=== PATIENT | female | born 1975 | race Caucasian/White ===

== ENCOUNTER 2018-10-14 05:26 | Day surgery (SDC) | payer OTHER ==
[2018-10-12 12:04] LABS: HEMATOCRIT 38.4 % (36.0-47.0); HEMOGLOBIN 12.9 g/dL (12.0-15.5); MEAN CORPUSCULAR HEMOGLOBIN 26.2 pg (27.0-33.4); MEAN CORPUSCULAR HGB CONC 33.5 g/dL (32.0-36.0); MEAN CORPUSCULAR VOLUME 78 fl (80-97); PLATELET COUNT 275 10^3/uL (150-450); RED BLOOD COUNT 4.91 10^6/uL (3.72-5.28); RED CELL DISTRIBUTION WIDTH 14.6 % (11.5-14.0); WHITE BLOOD COUNT 4.7 10^3/uL (4.0-10.5)
[2018-10-12 12:11] LABS: APPEARANCE,URINE SLIGHTLY-CLOUDY; BILIRUBIN,URINE NEGATIVE (NEGATIVE); COLOR,URINE YELLOW; GLUCOSE, URINE NEGATIVE (NEGATIVE); KETONES,URINE 20 mg/dL (NEGATIVE); LEUKOCYTE ESTERASE,URINE NEGATIVE (NEGATIVE); NITRITE,URINE NEGATIVE (NEGATIVE); PROTEIN,URINE NEGATIVE (NEGATIVE); URINE SPECIFIC GRAVITY 1.006; UROBILINOGEN,URINE NEGATIVE mg/dL (<2.0)
[2018-10-12 12:25] LABS: ANION GAP 14 (5-19); BLOOD UREA NITROGEN 12 mg/dL (7-20); CALCIUM 9.3 mg/dL (8.4-10.2); CARBON DIOXIDE 27 mmol/L (22-30); CHLORIDE 102 mmol/L (98-107); GLUCOSE 85 mg/dL (75-110); POTASSIUM 4.5 mmol/L (3.6-5.0)
[~2018-10-14 05:26] MED LIST: CEFAZOLIN 1 GM/D5W RTU 1 GM/50 ML RTUPB IV ONE; CEFAZOLIN 1 GM/D5W RTU 1 GM/50 ML RTUPB IV PRN; LACTATED RINGERS 1000 ML IV PRN; LIDOCAINE 0.5% INJ-PF (5 MG/ML) 50 ML SDV SUBCUT PRN
[2018-10-14] MEDS ORDERED: PROPOFOL INJ 200 MG/20 ML VIAL IV ONE (06:59)
[2018-10-14] MEDS ORDERED: MIDAZOLAM 2 MG/2 ML INJ ONE (06:59)
[2018-10-14] MEDS ORDERED: ONDANSETRON HCL INJ/PF 4 MG/2 ML SDV ONE (06:59)
[2018-10-14] MEDS ORDERED: FENTANYL CITRATE INJ/PF 100 MCG/2 ML AMPUL ONE (06:59)
[2018-10-14] MEDS ORDERED: LIDOCAINE 1% INJ-PF (10 MG/ML) 30 ML SDV ONE (07:08)
[2018-10-14] MEDS ORDERED: DIPHENHYDRAMINE HCL 50 MG/ML VIAL IV PRN (07:36)
[2018-10-14] MEDS ORDERED: MEPERIDINE HCL/PF INJ 25 MG/1 ML DISP.SYRIN IV PRN (07:36)
[2018-10-14] MEDS ORDERED: FENTANYL CITRATE INJ/PF 100 MCG/2 ML AMPUL IV PRN ×3 (07:36)
[2018-10-14] MEDS ORDERED: PROMETHAZINE HCL INJ 25 MG/1 ML VIAL IV PRN (07:36)
[2018-10-14] MEDS ORDERED: MORPHINE SULFATE 10 MG/ML INJ IV PRN (07:36)
[2018-10-14] MEDS ORDERED: OXYCODONE-ACETAMINOPHEN 5-325 MG TABLET PO PRN (08:03)
[2018-10-14] MEDS ORDERED: MORPHINE SULFATE 10 MG/ML INJ INJ PRN (08:03)
[2018-10-14] MEDS ORDERED: PROMETHAZINE HCL INJ 25 MG/1 ML VIAL IM PRN (08:05)
[2018-10-14] MEDS ORDERED: IBUPROFEN 800 MG TABLET ONE (08:34)
--- NOTE | 2018-10-14 08:55 | OPERATIVE REPORT E ---
Operative Report NAME: SRAVANI CARRILLO : 1975 AGE: 43Y DATE OF SURGERY: 10/14/2018 ROOM: PREOPERATIVE DIAGNOSIS: Menorrhagia. POSTOPERATIVE DIAGNOSIS: Menorrhagia. PROCEDURE: Hysteroscopy, Novasure ablation. SURGEON: JAUQI GOVEA M.D. COMPLICATIONS: None. ANESTHESIA: LMAC, paracervical block. FINDINGS: A normal-appearing uterus, specifically no bicornuate nature was noted to the uterus. No polyps or fibroids were appreciated. INDICATIONS FOR PROCEDURE: The patient had profuse profound menorrhagia unresponsive to the usual outpatient management. She had erythema nodosum reaction to Provera. The usual risks of bleeding, infection, anesthesia, and damage to organs and tissues was discussed and the patient understood. DESCRIPTION OF PROCEDURE: The patient was taken to the operating room and placed in modified lithotomy position. After adequate anesthesia ascertained, bladder was left undrained. EUA performed. Surgical timeout performed and antibiotics had been given. Uterine measurements were taken after cervix was dilated to admit the operative hysteroscope. Noted to be approximately 5.5 cm length, 4.7 cm width was noted. A uterine burn for approximately a minute and 10 seconds was performed. At completion of procedure, a rehysteroscopy demonstrated good uterine integrity was noted and good burn noted throughout. The patient was awakened and taken to recovery room in stable condition. DICTATING PHYSICIAN: JAQUI GOVEA M.D. [id number] PHY#: [id number] ID: [id number] JOB#: [id number] ACCT: [id number] cc:JAQUI GOVEA M.D. >
[2018-10-14] MEDS ORDERED: IBUPROFEN 800 MG TABLET PO SCH (10:00)
[2018-10-14 10:05] VITALS: BP 135/85
== END 2018-10-14 09:35 | disposition home or self-care (01) ==
LOC: OROUT 05:26
PROVIDERS: ATTEND Specialist
DX: N92.0 Excessive and frequent menstruation with regular cycle (principal); E03.9 Hypothyroidism, unspecified; K21.9 Gastro-esophageal reflux disease without esophagitis; Z79.899 Other long term (current) drug therapy
CPT/HCPCS: 86900; 86901; 36415; 86850; 85027; 81025; 80048; 81001; 58563; J2250; J0690; J3010; J3490; J2405; J2704; 952

== ENCOUNTER → 2019-04-21 | Outpatient (CLI) | payer OTHER ==
--- NOTE | 2019-04-21 22:31 | EKG REPORT ---
SEVERITY:- NORMAL ECG - SINUS RHYTHM : Confirmed by: Radhames Mccartney 21-Apr-2019 22:30:15
== END ==
LOC: OD 11:17
PROVIDERS: ATTEND Nurse Practitioner Family
DX: I10 Essential (primary) hypertension (principal)
CPT/HCPCS: 93005; 93010

== ENCOUNTER → 2019-06-02 | Outpatient (CLI) | payer OTHER ==
--- NOTE | 2019-06-02 13:54 | RADIOLOGY REPORT (SQ) ---
EXAM DESCRIPTION: ANKLE LEFT COMPLETE COMPLETED DATE/TIME: 06/02/2019 1:28 pm REASON FOR STUDY: FOOT PAIN, LFT ANKLE PAIN M79.671 PAIN IN RIGHT FOOT COMPARISON: None. NUMBER OF VIEWS: Three views. TECHNIQUE: AP, lateral, and oblique radiographic images acquired of the left ankle. LIMITATIONS: None. FINDINGS: MINERALIZATION: Normal. BONES: No acute fracture or dislocation. No worrisome bone lesions. JOINTS: No effusions. SOFT TISSUES: No soft tissue swelling. No foreign body. OTHER: No other significant finding. IMPRESSION: NEGATIVE STUDY OF THE LEFT ANKLE. NO RADIOGRAPHIC EVIDENCE OF ACUTE INJURY. TECHNICAL DOCUMENTATION: JOB ID: [id number] [employer]- All Rights Reserved Reading location - IP/workstation name: [email or web address]
--- NOTE | 2019-06-02 13:55 | RADIOLOGY REPORT (SQ) ---
EXAM DESCRIPTION: FOOT BILATERAL 3 VIEWS COMPLETED DATE/TIME: 06/02/2019 1:28 pm REASON FOR STUDY: FOOT PAIN, LFT ANKLE PAIN COMPARISON: None. NUMBER OF VIEWS: Three views right foot. Three views left foot TECHNIQUE: AP, lateral, and oblique radiographic images acquired of the left foot. LIMITATIONS: None. FINDINGS: MINERALIZATION: Normal. BONES: No acute fracture or dislocation. No worrisome bone lesions. Normal alignment. No significant arthritic changes. JOINTS AND SOFT TISSUES: No swelling. No calcifications. No foreign bodies. OTHER: No other significant finding. IMPRESSION: NEGATIVE STUDY OF THE RIGHT AND LEFT FOOT. NO ACUTE POST-TRAUMATIC FINDINGS. NO EXPLANATION FOR PAIN. TECHNICAL DOCUMENTATION: JOB ID: [id number] [employer]- All Rights Reserved Reading location - IP/workstation name: [email or web address]
== END ==
LOC: OD 13:02
PROVIDERS: ATTEND Nurse Practitioner Family
DX: M79.671 Pain in right foot (principal); M25.572 Pain in left ankle and joints of left foot

== ENCOUNTER → 2019-08-01 | Outpatient (CLI) | payer OTHER ==
--- NOTE | 2019-08-01 09:48 | RADIOLOGY REPORT (SQ) ---
EXAM DESCRIPTION: LUMBAR SPINE COMPLETE COMPLETED DATE/TIME: 08/01/2019 9:14 am REASON FOR STUDY: LUMBAR PAIN M54.5 LOW BACK PAIN COMPARISON: None. NUMBER OF VIEWS: Five views including obliques. TECHNIQUE: AP, lateral, oblique, and sacral radiographic images acquired of the lumbar spine. LIMITATIONS: None. FINDINGS: MINERALIZATION: Normal. SEGMENTATION: 5 [id number] lumbar vertebral bodies. Hypoplastic T12 ribs. ALIGNMENT: Mild straightening of the normal lumbar lordosis. VERTEBRAE: Maintained height. No fracture or worrisome bone lesion. DISCS: Preserved height. No significant osteophytes or end plate irregularity. Minimal disc height loss at L4-5 and L5-S1. POSTERIOR ELEMENTS: Pedicles and facets are intact. No pars defect or posterior arch defects. HARDWARE: None in the spine. PARASPINAL SOFT TISSUES: Normal. PELVIS: Intact as visualized. No fractures or worrisome bone lesions. SI joints intact. OTHER: No other significant finding. IMPRESSION: No acute bony abnormality of the lumbar spine. Minimal disc height loss at L4-5 and L5-S1. TECHNICAL DOCUMENTATION: JOB ID: [id number] [employer]- All Rights Reserved Reading location - IP/workstation name: [email or web address]
== END ==
LOC: OD 09:00
PROVIDERS: ATTEND Nurse Practitioner Family
DX: M54.5 Low back pain (principal)
CPT/HCPCS: 72110

== ENCOUNTER 2019-11-09 05:31 | Day surgery (SDC) | payer OTHER ==
[2019-11-08 09:52] LABS: APPEARANCE,URINE SLIGHTLY-CLOUDY; BILIRUBIN,URINE NEGATIVE (NEGATIVE); COLOR,URINE YELLOW; GLUCOSE, URINE NEGATIVE (NEGATIVE); KETONES,URINE NEGATIVE (NEGATIVE); LEUKOCYTE ESTERASE,URINE NEGATIVE (NEGATIVE); NITRITE,URINE NEGATIVE (NEGATIVE); PROTEIN,URINE NEGATIVE (NEGATIVE); URINE SPECIFIC GRAVITY 1.015; UROBILINOGEN,URINE NEGATIVE mg/dL (<2.0)
[2019-11-08 10:43] LABS: HEMATOCRIT 39.3 % (36.0-47.0); HEMOGLOBIN 13.1 g/dL (12.0-15.5); MEAN CORPUSCULAR HEMOGLOBIN 25.9 pg (27.0-33.4); MEAN CORPUSCULAR HGB CONC 33.4 g/dL (32.0-36.0); MEAN CORPUSCULAR VOLUME 78 fl (80-97); PLATELET COUNT 258 10^3/uL (150-450); RED BLOOD COUNT 5.06 10^6/uL (3.72-5.28); RED CELL DISTRIBUTION WIDTH 15.2 % (11.5-14.0); WHITE BLOOD COUNT 4.5 10^3/uL (4.0-10.5)
[2019-11-08 11:05] LABS: ALBUMIN 4.5 g/dL (3.5-5.0); ALKALINE PHOSPHATASE 41 U/L (38-126); ANION GAP 11 (5-19); ASPARTATE AMINO TRANSFERASE 27 U/L (14-36); BILIRUBIN,DIRECT 0.1 mg/dL (0.0-0.4); BILIRUBIN,TOTAL 0.4 mg/dL (0.2-1.3); BLOOD UREA NITROGEN 15 mg/dL (7-20); CALCIUM 9.7 mg/dL (8.4-10.2); CARBON DIOXIDE 28 mmol/L (22-30); CHLORIDE 101 mmol/L (98-107); GLUCOSE 90 mg/dL (75-110); POTASSIUM 4.1 mmol/L (3.6-5.0); TOTAL PROTEIN 7.4 g/dL (6.3-8.2)
[~2019-11-09 05:31] MED LIST changes: -CEFAZOLIN 1 GM/D5W RTU 1 GM/50 ML RTUPB IV ONE; -CEFAZOLIN 1 GM/D5W RTU 1 GM/50 ML RTUPB IV PRN; +CEFAZOLIN SODIUM 1 GM in DEXTROSE 5%-WATER 50 ML IV PRN; +MAGNESIUM CITRATE 296 ML BOTTLE PO PRN
[2019-11-09] MEDS ORDERED: LIDOCAINE 2% INJ (20 MG/ML) 20 ML MDV ONE (07:03)
[2019-11-09] MEDS ORDERED: SCOPOLAMINE HYDROBROMIDE 1.5 MG PATCH.TD72 ONE (07:04)
[2019-11-09] MEDS ORDERED: FENTANYL CITRATE INJ/PF 100 MCG/2 ML AMPUL ONE (07:04)
[2019-11-09] MEDS ORDERED: PROMETHAZINE HCL INJ 25 MG/1 ML VIAL ONE (07:04)
[2019-11-09] MEDS ORDERED: MIDAZOLAM 2 MG/2 ML INJ ONE (07:04)
[2019-11-09] MEDS ORDERED: PROPOFOL INJ 200 MG/20 ML VIAL IV ONE (07:04)
[2019-11-09] MEDS ORDERED: HYDROMORPHONE HCL INJ/PF 2 MG/ML AMPULE ONE (07:04)
[2019-11-09] MEDS ORDERED: DIPHENHYDRAMINE HCL 50 MG/ML VIAL IV PRN (08:22)
[2019-11-09] MEDS ORDERED: MEPERIDINE HCL/PF INJ 25 MG/1 ML DISP.SYRIN IV PRN (08:22)
[2019-11-09] MEDS ORDERED: PROMETHAZINE HCL INJ 25 MG/1 ML VIAL IV PRN (08:22)
[2019-11-09] MEDS ORDERED: FENTANYL CITRATE INJ/PF 100 MCG/2 ML AMPUL IV PRN ×3 (08:22)
[2019-11-09] MEDS ORDERED: OXYCODONE-ACETAMINOPHEN 5-325 MG TABLET PO PRN ×2 (08:22)
[2019-11-09] MEDS ORDERED: MORPHINE SULFATE 10 MG/ML INJ IV PRN (08:22)
[2019-11-09] MEDS ORDERED: ONDANSETRON HCL INJ/PF 4 MG/2 ML SDV IV PRN (08:22)
[2019-11-09] MEDS ORDERED: ACETAMINOPHEN 1,000 MG/100 ML RTUPB IV ONE ×3 (10:21→18:25)
--- NOTE | 2019-11-09 10:39 | Operative Report ---
Operative Report DATE OF SURGERY: 11/09/19 PREOPERATIVE DIAGNOSIS: abnormal uterine bleeding, pelvic pain POSTOPERATIVE DIAGNOSIS: same OPERATION: Biotic assisted total laparoscopic hysterectomy with bilateral salpingectomy SURGEON: SHERWIN MINA 1ST MANAGER BEAUTY: RYLIE MIKE ANESTHESIA: GA TISSUE REMOVED OR ALTERED: Uterus cervix bilateral fallopian tubes COMPLICATIONS: None ESTIMATED BLOOD LOSS: 200 cc INTRAOPERATIVE FINDINGS: 12-week size uterus boggy in appearance normal ovaries bilaterally for a perimenopausal female normal fallopian tubes PROCEDURE: Patient was taken to the operating room prepared and draped in normal sterile fashion in dorsolithotomy position. Under sterile conditions a Villalta catheter was placed to gravity. Speculum was placed into the vagina and the cervix was grasped on the anterior lip with a single-tooth tenaculum. The cervix was then dilated to accommodate a large V care uterine manipulator. Manipulate it was placed gloves were changed and attention was turned to the upper portion of the case. A 2-1/2 cm umbilical skin incision was made 11 blade and this was carried through to the underlying layer of fascia with the same 11 blade. It was grasped to Ana's acted with Jorge's. New cavity was entered bluntly. A GelPort was placed in a normal fashion the camera port and air seal in the appropriate locations. [place] was then inflated with approximately 2 L of CO2 gas. The camera was then introduced into the peritoneal cavity through the camera port and the patient was placed in steep Trendelenburg. The above findings were noted. Under direct visualization two 5 mm ports were placed approximately 10 cm on either side of the umbilicus. The robot was then docked with the vessel sealer placed on the patient's left and the monopolar scissors placed placed on the patient's right. I then unscrubbed and set at the robotic console beginning with the left adnexa fallopian tube was transected from the uterus using the vessel sealer and monopolar scissors as needed. The fallopian tube was then removed through the assistance port. The ovarian ligament was then transected using the vessel sealer. The uterine artery was skeletonized using blunt dissection and ligated using the vessel sealer down to the level of the external cervical os. The bladder flap was then begun using monopolar scissors and blunt dissection over the V care cup noted through the mucosa. Attention was then turned to the right adnexa where the fallopian tube was transected in a similar fashion. The utero-ovarian ligament was transected using the vessel sealer. The Uterine artery was then transected using the vessel sealer and skeletonized using blunt dissection. The vessel sealer was again used to completely transect the uterine artery down to the level of the external cervical os. The bladder flap was completed using similar sharp and blunt dissection. Once the bladder was felt to be adequately away from the lower uterine segment, the colpotomy was begun on the anterior aspect of the cervix following the outline of the V care cup mucosa. The cup was followed in a circumferential fashion completely around the cervix estimate was completely freed. The specimen was then removed through the vaginal defect. The instruments were then changed to a Shane needle milk pickup driver and pro-grasp. AV lock needle was introduced through the assistance port. The lock needle was used to close the vaginal cuff and hemostasis. The needle was then removed through the assistance port. The peritoneal cavity was carefully inspected the ureters were noted to both be peristalsing and there was no signs of hydroureter. The robot was then undocked. The fascia was closed at the umbilical skin incision seen 0 Vicryl 3 skin incisions were closed using 4-0 Vicryl. Sponge lap and needle counts were correct x2 and the patient was taken to recovery in stable condition.
[2019-11-09] MEDS: OXYCODONE-ACETAMINOPHEN 5-325 MG TABLET PO PRN ×2 (11:27→17:05)
[2019-11-09] MEDS ORDERED: (PENDING PHARMACY ID) (Cyanocobalamin (Vitamin B-12) [Vitamin B-12 500 Mcg Tablet] 500 MCG PO SCH (11:45)
[2019-11-09] MEDS ORDERED: FLUTICASONE NASAL SPRAY 50 MCG/SPRY 120 SPRAY/16 GM NASL PRN (11:45)
[2019-11-09] MEDS ORDERED: ROCURONIUM BROMIDE INJ 50 MG/5 ML VIAL IV ONE (11:55)
[2019-11-09] MEDS ORDERED: SUCCINYLCHOLINE CHLORIDE INJ 200 MG/10 ML VIAL ONE (11:55)
[2019-11-09] MEDS ORDERED: ONDANSETRON HCL INJ/PF 4 MG/2 ML SDV ONE (11:55)
[2019-11-09] MEDS: MORPHINE SULFATE 10 MG/ML INJ IV PRN ×2 (13:35→23:33)
[2019-11-09] MEDS ORDERED: HYOSCYAMINE SULFATE 0.125 MG TABLET PO PRN (14:22)
[2019-11-09] MEDS ORDERED: RINGERS SOLUTION,LACTATED 500 ML IV ONE (14:30)
[2019-11-09] MEDS: KETOROLAC TROMETHAMINE INJ/PF 30 MG/1 ML SDV IV SCH ×2 (14:58→21:38)
[2019-11-10] MEDS: KETOROLAC TROMETHAMINE INJ/PF 30 MG/1 ML SDV IV SCH (05:45)
[2019-11-10] MEDS ORDERED: LEVOTHYROXINE SODIUM 0.05 MG TABLET PO SCH (06:00)
[2019-11-10 07:06] LABS: HEMATOCRIT 32.6 % (36.0-47.0); MEAN CORPUSCULAR HEMOGLOBIN 26.1 pg (27.0-33.4); MEAN CORPUSCULAR HGB CONC 33.6 g/dL (32.0-36.0); MEAN CORPUSCULAR VOLUME 78 fl (80-97); PLATELET COUNT 212 10^3/uL (150-450); RED BLOOD COUNT 4.19 10^6/uL (3.72-5.28); RED CELL DISTRIBUTION WIDTH 15.5 % (11.5-14.0)
--- NOTE | 2019-11-10 07:44 | PDOC DISCHARGE SUMMARY ---
Impression - Admit/DC Date/PCP Admission Date/Primary Care Provider: JUMANA MELÉNDEZ NP Discharge Date: 11/10/19 - Discharge Diagnosis (1) Abnormal uterine bleeding Is this a current diagnosis for this admission?: Yes (2) Pelvic pain Is this a current diagnosis for this admission?: Yes - Assessment Summary: patient underwent a RATLH w/ B/L salpingectomy without difficulty. unremarkable post operative course. voiding well and tolerating regular diet. bp has been a little low attributable to pain medications - Additional Information Resuscitation Status: Full Code Discharge Diet: As Tolerated Discharge Activity: Balance Activity w/Rest, No Driving, No Lifting Over 10 Pounds, No Lifting/Push/Pulling, Pelvic Rest, No tub bath Referrals: JUMANA MELÉNDEZ NP [Primary Care Provider] - Prescriptions: Oxycodone HCl/Acetaminophen [Percocet 5-325 mg Tablet] 1 tab PO Q6HP PRN #30 tablet PRN Reason: Ibuprofen [Motrin 800 mg Tablet] 800 mg PO Q8HP PRN #60 tablet PRN Reason: Home Medications: Polyethylene Glycol 3350 [Miralax Powder 17 Gm/Packet] 17 gm PO DAILY 02/06/13 Cyanocobalamin (Vitamin B-12) [Vitamin B-12 500 mcg Tablet] 500 mcg PO .Q48HRS 11/14/14 Levothyroxine Sodium [Synthroid] 125 mcg PO QAM 11/14/14 Cetirizine HCl [Zyrtec] 10 mg PO DAILY 10/12/18 Cholecalciferol (Vitamin D3) [Vitamin D3 5000 unit Capsule] 5,000 unit PO DAILY 10/12/18 Dexlansoprazole [Dexilant] 60 mg PO QAM 10/12/18 Fluticasone Propionate [Flonase Nasal Bard 50 Mcg/Bard 16 gm] 2 sprays NASL PRN PRN 10/12/18 Lisinopril/Hydrochlorothiazide [Lisinopril-Hctz 10-12.5 mg Tab] 1 tab PO DAILY 11/09/19 Ibuprofen [Motrin 800 mg Tablet] 800 mg PO Q8HP PRN #60 tablet 11/10/19 Oxycodone HCl/Acetaminophen [Percocet 5-325 mg Tablet] 1 tab PO Q6HP PRN #30 tablet 11/10/19 History of Present Illiness History of Present Illness: SRAVANI CARRILLO is a 44 year old female Physical Exam - Physical Exam Vital Signs: Temp Pulse Resp BP Pulse Ox 97.4 F 98 20 102/61 97 11/10/19 03:25 11/10/19 03:25 11/10/19 03:25 11/10/19 03:25 11/10/19 03:25 Intake & Output 11/09/19 11/10/19 11/11/19 06:59 06:59 06:59 Intake Total 3650 Output Total 10 525 Balance -10 3125 Weight 95.71 kg 98.1 kg Results Laboratory Results: WBC 4.5 10^3/uL (4.0-10.5) 11/08/19 09:37 RBC 5.06 10^6/uL (3.72-5.28) 11/08/19 09:37 Hgb 13.1 g/dL (12.0-15.5) 11/08/19 09:37 Hct 39.3 % (36.0-47.0) 11/08/19 09:37 MCV 78 fl (80-97) L 11/08/19 09:37 MCH 25.9 pg (27.0-33.4) L 11/08/19 09:37 MCHC 33.4 g/dL (32.0-36.0) 11/08/19 09:37 RDW 15.2 % (11.5-14.0) H 11/08/19 09:37 Plt Count 258 10^3/uL (150-450) 11/08/19 09:37 Sodium 140.2 mmol/L (137-145) 11/08/19 09:37 Potassium 4.1 mmol/L (3.6-5.0) 11/08/19 09:37 Chloride 101 mmol/L (98-107) 11/08/19 09:37 Carbon Dioxide 28 mmol/L (22-30) 11/08/19 09:37 Anion Gap 11 (5-19) 11/08/19 09:37 BUN 15 mg/dL (7-20) 11/08/19 09:37 Creatinine 0.78 mg/dL (0.52-1.25) 11/08/19 09:37 Est GFR ( Amer) > 60 (>60) 11/08/19 09:37 Est GFR (MDRD) Non-Af > 60 (>60) 11/08/19 09:37 Glucose 90 mg/dL (75-110) 11/08/19 09:37 Calcium 9.7 mg/dL (8.4-10.2) 11/08/19 09:37 Total Bilirubin 0.4 mg/dL (0.2-1.3) 11/08/19 09:37 Direct Bilirubin 0.1 mg/dL (0.0-0.4) 11/08/19 09:37 Neonat Total Bilirubin Not Reportable 11/08/19 09:37 Neonat Direct Bilirubin Not Reportable 11/08/19 09:37 Neonat Indirect Bili Not Reportable 11/08/19 09:37 AST 27 U/L (14-36) 11/08/19 09:37 ALT 24 U/L (<35) 11/08/19 09:37 Alkaline Phosphatase 41 U/L (38-126) 11/08/19 09:37 Total Protein 7.4 g/dL (6.3-8.2) 11/08/19 09:37 Albumin 4.5 g/dL (3.5-5.0) 11/08/19 09:37 Urine Color YELLOW 11/08/19 09:27 Urine Appearance SLIGHTLY-CLOUDY 11/08/19 09:27 Urine pH 7.0 (5.0-9.0) 11/08/19 09:27 Ur Specific [place] 1.015 11/08/19 09:27 Urine Protein NEGATIVE mg/dL (NEGATIVE) 11/08/19 09:27 Urine Glucose (UA) NEGATIVE mg/dL (NEGATIVE) 11/08/19 09:27 Urine Ketones NEGATIVE mg/dL (NEGATIVE) 11/08/19 09:27 Urine Blood LARGE (NEGATIVE) H 11/08/19 09:27 Urine Nitrite NEGATIVE (NEGATIVE) 11/08/19 09:27 Urine Bilirubin NEGATIVE (NEGATIVE) 11/08/19 09:27 Urine Urobilinogen NEGATIVE mg/dL (<2.0) 11/08/19 09:27 Ur Leukocyte Esterase NEGATIVE (NEGATIVE) 11/08/19 09:27 Urine WBC (Auto) 1 /HPF 11/08/19 09:27 Urine RBC (Auto) 28 /HPF 11/08/19 09:27 Urine Bacteria (Auto) TRACE /HPF 11/08/19 09:27 Squamous Epi Cells Auto 3 /HPF 11/08/19 09:27 Urine Mucus (Auto) RARE /LPF 11/08/19 09:27 Urine Ascorbic Acid NEGATIVE (NEGATIVE) 11/08/19 09:27 Urine HCG, Qual NEGATIVE (NEGATIVE) 11/09/19 05:54 Blood Type A POSITIVE 11/08/19 09:37 Antibody Screen NEGATIVE 11/08/19 09:37 Stroke Is this a Stroke Patient?: No Acute Heart Failure - Is this a Heart Failure Patient?: No
[2019-11-10 09:10] VITALS: BP 117/74
[2019-11-10] MEDS ORDERED: POLYETHYLENE GLYCOL 3350 POWDER 17 GM/1 PACKET PO SCH (10:00)
[2019-11-10] MEDS ORDERED: CETIRIZINE 10 MG TABLET PO SCH (10:00)
[2019-11-10] MEDS ORDERED: (PENDING PHARMACY ID) (Cetirizine Hcl [Zyrtec] 10 MG) PO SCH (10:00)
[2019-11-10] MEDS ORDERED: PANTOPRAZOLE SODIUM 40 MG TABLET.DR PO SCH (10:00)
[2019-11-10] MEDS ORDERED: (PENDING PHARMACY ID) (Lisinopril/Hydrochlorothiazide [Lisinopril-Hctz 10-12.5 Mg Tab] 1 T PO SCH (10:00)
[2019-11-10] MEDS ORDERED: HYDROCHLOROTHIAZIDE 12.5 MG TABLET PO SCH (10:00)
[2019-11-10] MEDS ORDERED: CYANOCOBALAMIN (VITAMIN B-12) 1,000 MCG TABLET PO SCH (10:00)
[2019-11-10] MEDS ORDERED: LISINOPRIL 10 MG TABLET PO SCH (10:00)
[2019-11-10] MEDS ORDERED: IBUPROFEN 800 MG TABLET PO PRN (14:00)
== END 2019-11-10 10:13 | disposition home or self-care (01) ==
LOC: OROUT 05:31 → 2S 10:50 → OROUT 11-10 10:13
PROVIDERS: ATTEND Obstetrics & Gynecology
DX: N93.9 Abnormal uterine and vaginal bleeding, unspecified (principal); R10.2 Pelvic and perineal pain; N80.0 Endometriosis of uterus; I10 Essential (primary) hypertension; J45.990 Exercise induced bronchospasm
CPT/HCPCS: 58571; S2900; 36415; 80053; 81001; 81025; 840; 85027; 86850; 86900; 86901; 88307; A4649; J0131; J0330; J0690; J1170; J1885; J2250; J2270; J2405; J2550; J2704; J3010; J3490; J7060; J7120

== ENCOUNTER → 2020-04-30 | Outpatient (CLI) | payer OTHER ==
--- NOTE | 2020-04-30 10:37 | DRAGON STRESS TEST REPORT ---
Name: Lila Zarate : 79 Date: 04/30/20 The patient underwent a stress/rest, single isotope SPECT Imaging with pharmacological stress and gated SPECT imaging on for evaluation of atypical chest pain. The patient underwent infusion of regadnoson 0.4mg IV using the standard protocol. The heart rate was 93 beats per minute at baseline and increased to 133 beats per minuteduring the infusion of regadenoson. The resting blood pressure was 124/91mm/Hg and decreased to 116/77 mm/Hg, which is a normal response. The patient complained of dyspnea during the procedure. The resting electrocardiogram demonstrated NSR. Stress electrocardiogram is non- diagnostic in the setting of pharmacological stress. Myocardial perfusion imaging was performed at rest following the injection of 14.79 mCi of sestamibi. At peak pharmacolgic effect, the patient was injected with 42.3 mCi of sestamibi. Gating post-stress tomographic imaging was performed 60 minutes after stress. Findings The overall quality of the study is excellent. Raw images demonstrate breast attenuation artifact. Left ventricular cavity is noted to be normal on the rest and stress studies. Resting SPECT images demonstrate a small sized, of mild intensity perfusion defect in the anteroseptal wall. The stress images reveal a small sized, of mild intensity perfusion defect in the anteroseptal wall. Gated SPECT imaging reveals normal myocardial thickening and wall motion. The left ventricular ejection fraction was calculated to be 61% Impression -Myocardial perfusion imaging is normal with the above artifacts. -There is no scintigraphic evidence of ischemia or infarct. The fixed defect in the anteroseptal wall is consistent with breast attenuation. -Overall left ventricular systolic function was normal without wall motion. -There are no prior studies for comparison. MTDD
== END ==
LOC: RAD 07:05
PROVIDERS: ATTEND Internal Medicine Cardiovascular Disease
DX: R07.9 Chest pain, unspecified (principal)
CPT/HCPCS: 93017; 78452; A9500; Q9969